=== PATIENT | male | born 1980 | race Caucasian/White ===

== ENCOUNTER 2020-04-21 18:18 | Emergency (ER) | payer OTHER, SELFPAY ==
[~2020-04-21] VITALS: Ht 175.3 cm; Wt 100.6 kg
--- NOTE | 2020-04-21 18:38 | NUR ---
Note undone in EDM - 04/21/20 at 1847 by DAVID Pt here for suicidal ideation spoke with hot line went to [facility] and was told to come here. Pt on new medication that is not working and was better controlled on other medication. Pts plan on hanging himself. 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 Pt reports he left his familys house because they were smoking meth. Pt very tearful and behaving apporpraitely. Pt changed into gown and belongings placed in psych locker. Urine collected and walked to lab. Sitter at bedside.
--- NOTE | 2020-04-21 18:47 | NUR ---
Pt here for suicidal ideation spoke with hot line went to [facility] and was told to come here. Pt on new medication that is not working and was better controlled on other medication. Pts plan on hanging himself. 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 Pt reports he left his familys house because they were smoking meth. Pt very tearful and behaving apporpraitely. Pt changed into gown and belongings in bag in room with patient. Urine collected and at bedside, pt waiting to be seen by .
--- NOTE | 2020-04-21 18:57 | NUR ---
Report received from KAYA Grimaldo. This RN to assume care.
[2020-04-21 19:26] LABS: BASOPHILS # (AUTO) 0.02 x10^3/uL (0-0.1); BASOPHILS % (AUTO) 0 % (0-1); EOSINOPHILS # (AUTO) 0.13 x10^3/uL (0-0.4); EOSINOPHILS % (AUTO) 2 % (1-7); LYMPHOCYTES # (AUTO) 2.08 x10^3/uL (1-3.4); LYMPHOCYTES % (AUTO) 27 % (22-44); MD NO; MEAN CORPUSCULAR HEMOGLOBIN 30.4 pg (27.5-34.5); MEAN CORPUSCULAR HGB CONC 34.6 g/dL (33.2-36.2); MEAN PLATELET VOLUME 7.1 fL (7.4-10.4); MONOCYTES # (AUTO) 0.51 x10^3/uL (0.2-0.8); MONOCYTES % (AUTO) 7 % (2-9); NEUTROPHILS % (AUTO) 65 % (42-75); PLATELET COUNT 303 x10^3/uL (130-400); RED BLOOD COUNT 5.59 x10^6/uL (4.38-5.82); RED CELL DISTRIBUTION WIDTH 13.6 % (9.4-14.8)
[2020-04-21 19:39] LABS: ALANINE AMINOTRANSFERASE 42 U/L (12-78); ALBUMIN 3.7 g/dL (3.4-5.0); ANION GAP 4 mmol/L (5-15); CALCIUM 8.6 mg/dL (8.5-10.1); CHLORIDE 105 mmol/L (98-107); CREATININE 1.25 mg/dL (0.7-1.3); SALICYLATE LEVEL 2.1 mg/dL (2.8-20.0)
[2020-04-21 19:41] LABS: ALKALINE PHOSPHATASE 71 U/L (45-117); BILIRUBIN,TOTAL 0.3 mg/dL (0.2-1.0); TOTAL PROTEIN 7.6 g/dL (6.4-8.2)
[2020-04-21 20:28] LABS: AMPHETAMINE SCREEN, URINE Negative (Negative); BARBITURATE SCREEN, URINE Negative (Negative); BENZODIAZEPINE SCREEN, URINE Negative (Negative); CANNABINOID SCREEN, URINE Negative (Negative); COCAINE SCREEN, URINE Negative (Negative); METHADONE SCREEN, URINE Negative (Negative); OPIATE SCREEN, URINE Negative (Negative)
[2020-04-21] MEDS ORDERED: LORazepam 1MG TABLET ONE ×2 (20:52→22:34)
--- NOTE | 2020-04-21 20:58 | NUR ---
Patient feeling anxious and appears upset. Provided sprite and water. Admin meds per mar.
[2020-04-21] MEDS ORDERED: LORazepam 1MG TABLET PO ONE ×2 (21:00→22:30)
--- NOTE | 2020-04-21 22:30 | NUR ---
Patient remains anxious. Admin additional Ativan per jan.
--- NOTE | 2020-04-21 23:35 | NUR ---
TP RN: EMILY LAM IN [facility], WILL NOT ACCEPT PT DUE TO INSURANCE.
--- NOTE | 2020-04-21 23:55 | NUR ---
Patient sleeping in [place]. Respirations even and unlabored. Room secured; sitter outside. Belongings locked in cabinet.
--- NOTE | 2020-04-22 00:19 | NUR ---
TASK RN: PT RESTING CALMLY IN [facility]. NAD NOTED. SITTER PRESENT. ROOM SECURE. NO PERSONAL BELONGINGS NOTED IN ROOM.
--- NOTE | 2020-04-22 00:29 | NUR ---
TP RN: PACKET FAXED TO [facility].
--- NOTE | 2020-04-22 01:20 | NUR ---
Patient sleeping in [place]. Respirations even and unlabored. Room secured; sitter outside. Belongings locked in cabinet.
--- NOTE | 2020-04-22 02:09 | NUR ---
Pt report from Rina ramirez. This rn to assume care of pt. Moved to room 01. Roller doors in place. Sitter in hallway. Hospital bed in place.
--- NOTE | 2020-04-22 02:57 | NUR ---
Pt bedside report to Gabbi KIRKPATRICK.
--- NOTE | 2020-04-22 03:00 | NUR ---
report from KAYA lomeli
--- NOTE | 2020-04-22 04:00 | NUR ---
pt resting on hospital bed, eyes closed, resp even and unblabored. sitter at doorway for frequent checks.
--- NOTE | 2020-04-22 06:01 | NUR ---
pt resting on hospital bed, eyes closed, resp even and unlabored. sitter at doorway for frequent checks.
--- NOTE | 2020-04-22 06:59 | NUR ---
REPORT RECEIVED FROM RAYMUNDO KIRKPATRICK.
[2020-04-22 07:13] VITALS: BP 99/66
--- NOTE | 2020-04-22 07:23 | NUR ---
PT BECOMING AGITATED AND PARANOID. PT STATES HE WAS SWITCHED FROM [employer]OFT KLONOPIN AND BUSPAR TO ESCITALOPRAM WHICH HAS NOT BEEN WORKING FOR HIM X2 MONTHS. PT IS REQUESTING KLONOPIN, REPORTS THAT ATIVAN MAKES HIM SLEEPY AND PARANOID WHEN HE WAKES UP. UPDATED. PT MEDICATED PER EMAR. BREAKAST TRAY ORDERED. PT VSS, BRIGETTEN. PT REPORTS STILL SI.
--- NOTE | 2020-04-22 08:00 | NUR ---
BREAKFAST TRAY DELIVERED
--- NOTE | 2020-04-22 08:30 | NUR ---
PT SLEEPING ON HOSPITAL BED W/ SITTER OUTSIDE ROOM AND GARAGE DOORS DOWN FOR SAFETY. CHEST RISE AND FALL OBSERVED.
--- NOTE | 2020-04-22 09:48 | NUR ---
PT AMBULATED TO THE BR W/ A STEADY GAIT. RETURNED TO ROOM. PROVIDED WATER. SITTER OUTSIDE ROOM, GARAGE DOORS DOWN FOR SAFETY.
--- NOTE | 2020-04-22 10:27 | NUR ---
REPORT GIVEN TO RONNIE KIRKPATRICK FROM [facility]. HE REPORTS THEY CAN TAKE PT AT 1200PM TODAY. THROUGHPUT UPDATED.
--- NOTE | 2020-04-22 10:45 | NUR ---
THROUGHPUT: RECEIVED A CALL FROM RONNIE AT [facility], ACCEPTING MD IS DR. MEEHAN. PACKET MADE, COBRA SIGNED BY DR. SHAH. CALLED [facility], ADULT PSYCHIATRIST TIME AT 1200.
--- NOTE | 2020-04-22 11:42 | NUR ---
PT TRANSFERED BY [facility] TO [facility].
== END 2020-04-22 11:43 ==
LOC: ED 21:33
DX: F32.9 Major depressive disorder, single episode, unspecified (principal); F17.200 Nicotine dependence, unspecified, uncomplicated
CPT/HCPCS: 36415; 80053; 80307; 85025; 99285

== ENCOUNTER 2020-05-14 11:03 | Inpatient (IN) | payer MEDICAID ==
[~2020-05-14] VITALS: Ht 172.7 cm; Wt 108.0 kg
[2020-05-14] MEDS ORDERED: BISACODYL 10 MG SUPP PR PRN (11:30)
[2020-05-14] MEDS ORDERED: ONDANSETRON ODT 4 MG PO PRN (11:30)
[2020-05-14] MEDS ORDERED: POLYETHYLENE GLYCOL 17 GM PACKET PO PRN (11:30)
[2020-05-14] MEDS ORDERED: DOCUSATE 100 MG CAPSULE PO PRN (11:30)
[2020-05-14] MEDS ORDERED: ESCI20TA10 PO (12:30)
[2020-05-14] MEDS ORDERED: HALO5AMP2 PO (13:25)
[2020-05-14 13:29] VITALS: BP 118/71
[2020-05-14] MEDS ORDERED: ACET650S21 PO (14:16)
[2020-05-14] MEDS ORDERED: FAMO20TA7 PO (14:25)
[2020-05-14] MEDS ORDERED: LORA-974 PO (14:25)
[2020-05-14] MEDS ORDERED: CLON1TAB11 PO (14:25)
[2020-05-14] MEDS ORDERED: SERT100T32 PO (14:25)
[2020-05-14] MEDS ORDERED: LORA-446 PO (14:25)
[2020-05-14] MEDS ORDERED: ZIPRASIDONE 20MG CAPSULE ONE (14:43)
[2020-05-14] MEDS: LORazepam 1MG TABLET PO PRN ×2 (14:50→20:43)
[2020-05-14] MEDS: ZIPRASIDONE 20MG CAPSULE PO PRN ×2 (14:50→20:44)
[2020-05-14 15:17] LABS: MICROSCOPIC NOT IND
[2020-05-14 15:31] LABS: CHOL/HDL RATIO 6.6; FREE T4 (FREE THYROXINE) 1.07 ng/dL (0.76-1.46); LDL/HDL RATIO 3.7 (0.5-3.0)
[2020-05-14 20:45] VITALS: BP 104/70
[2020-05-15] MEDS: LORazepam 1MG TABLET PO PRN ×3 (03:19→18:41)
[2020-05-15] MEDS: ZIPRASIDONE 20MG CAPSULE PO PRN ×4 (03:20→20:04)
[2020-05-15 06:30] LABS: BASOPHILS # (AUTO) 0.02 x10^3/uL (0-0.1); BASOPHILS % (AUTO) 0 % (0-1); EOSINOPHILS # (AUTO) 0.16 x10^3/uL (0-0.4); EOSINOPHILS % (AUTO) 2 % (1-7); LYMPHOCYTES # (AUTO) 2.12 x10^3/uL (1-3.4); LYMPHOCYTES % (AUTO) 26 % (22-44); MD NO; MEAN CORPUSCULAR HGB CONC 33.4 g/dL (33.2-36.2); MEAN CORPUSCULAR VOLUME 89.8 fL (81-97); MEAN PLATELET VOLUME 6.8 fL (7.4-10.4); MONOCYTES # (AUTO) 0.54 x10^3/uL (0.2-0.8); MONOCYTES % (AUTO) 7 % (2-9); NEUTROPHILS # (AUTO) 5.42 x10^3/uL (1.8-6.8); NEUTROPHILS % (AUTO) 66 % (42-75); PLATELET COUNT 329 x10^3/uL (130-400); RED CELL DISTRIBUTION WIDTH 13.6 % (9.4-14.8)
[2020-05-15 06:39] LABS: ANION GAP 5 mmol/L (5-15); CALCIUM 8.7 mg/dL (8.5-10.1); CHLORIDE 110 mmol/L (98-107); CREATININE 0.91 mg/dL (0.7-1.3)
[2020-05-15 07:53] VITALS: BP 145/92
[2020-05-15] MEDS ORDERED: ESCITALOPRAM 10MG TABLET PO SCH (09:00)
[2020-05-15] MEDS: ACETAMINOPHEN 325 MG TABLET PO PRN (12:49)
[2020-05-15] MEDS ORDERED: DIVALPROEX 500 MG TAB.ER.24H ONE (13:57)
[2020-05-15] MEDS ORDERED: DIVALPROEX 500 MG TABLET.DR ONE (13:58)
[2020-05-15] MEDS ORDERED: DIVALPROEX 500 MG TAB.ER.24H PO ONE (14:00)
[2020-05-15] MEDS ORDERED: DIVALPROEX 500 MG TABLET.DR PO ONE (14:00)
[2020-05-15 19:48] VITALS: BP 130/82
[2020-05-15] MEDS: DIVALPROEX 500 MG TABLET.DR PO SCH (20:04)
[2020-05-15] MEDS ORDERED: DOXEPIN 25 MG CAPSULE ONE (20:43)
[2020-05-15] MEDS: DOXEPIN 25 MG CAPSULE PO PRN (20:52)
[2020-05-15] MEDS ORDERED: DIVALPROEX 500 MG TAB.ER.24H PO SCH (21:00)
[2020-05-16 07:48] VITALS: BP 129/73
[2020-05-16] MEDS: DIVALPROEX 500 MG TABLET.DR PO SCH ×2 (08:43→20:48)
[2020-05-16] MEDS: ZIPRASIDONE 20MG CAPSULE PO PRN ×3 (08:44→20:48)
[2020-05-16] MEDS: ACETAMINOPHEN 325 MG TABLET PO PRN ×2 (08:44→14:41)
[2020-05-16] MEDS: LORazepam 1MG TABLET PO PRN ×2 (08:44→14:42)
[2020-05-16 19:12] VITALS: BP 119/74
[2020-05-16] MEDS: DOXEPIN 25 MG CAPSULE PO PRN (20:48)
[2020-05-17] MEDS: LORazepam 1MG TABLET PO PRN ×4 (03:20→23:19)
[2020-05-17 07:45] VITALS: BP 120/84
[2020-05-17] MEDS: DIVALPROEX 500 MG TABLET.DR PO SCH ×2 (08:30→20:29)
[2020-05-17] MEDS: ZIPRASIDONE 20MG CAPSULE PO PRN (08:30)
[2020-05-17 19:26] VITALS: BP 142/86
[2020-05-17] MEDS: ZIPRASIDONE 40MG CAPSULE PO SCH (20:29)
[2020-05-17] MEDS: DOXEPIN 25 MG CAPSULE PO PRN (20:29)
[2020-05-18] MEDS: LORazepam 1MG TABLET PO PRN ×2 (06:07→12:07)
[2020-05-18 07:49] VITALS: BP 121/75
[2020-05-18] MEDS: DIVALPROEX 500 MG TABLET.DR PO SCH ×2 (08:32→20:29)
[2020-05-18] MEDS: ZIPRASIDONE 20MG CAPSULE PO PRN (08:33)
[2020-05-18] MEDS: ACETAMINOPHEN 325 MG TABLET PO PRN (08:33)
[2020-05-18] MEDS ORDERED: ZIPR40CA2 PO (13:38)
[2020-05-18] MEDS ORDERED: DOXE25CA PO (13:38)
[2020-05-18] MEDS ORDERED: DIVA-61 PO (13:38)
[2020-05-18 19:53] VITALS: BP 119/80
[2020-05-18] MEDS: DOXEPIN 25 MG CAPSULE PO PRN (20:29)
[2020-05-18] MEDS: ZIPRASIDONE 40MG CAPSULE PO SCH (20:29)
[2020-05-19 07:00] VITALS: BP 121/79
[2020-05-19] MEDS: DIVALPROEX 500 MG TABLET.DR PO SCH (08:29)
[2020-05-19] MEDS: ACETAMINOPHEN 325 MG TABLET PO PRN (10:06)
== END 2020-05-19 14:15 | disposition home or self-care (01) | DRG 885 ==
LOC: 3E 13:12
PROVIDERS: ADMIT Psychiatry & Neurology Psychosomatic Medicine; ATTEND Psychiatry & Neurology Psychosomatic Medicine
DX: F31.63 Bipolar disorder, current episode mixed, severe, without psychotic features (principal); F15.20 Other stimulant dependence, uncomplicated; K50.90 Crohn's disease, unspecified, without complications; F41.9 Anxiety disorder, unspecified; F43.10 Post-traumatic stress disorder, unspecified; F17.200 Nicotine dependence, unspecified, uncomplicated; G89.29 Other chronic pain; M54.2 Cervicalgia; I10 Essential (primary) hypertension; Z79.899 Other long term (current) drug therapy; Z91.030 Bee allergy status; Z59.0 Homelessness
CPT/HCPCS: 36415; 72040; 80048; 80061; 81003; 82150; 82607; 83690; 84439; 84443; 85025; 93005

== ENCOUNTER 2020-05-23 04:55 | Emergency (ER) | payer MEDICAID ==
[~2020-05-23] VITALS: Ht 175.3 cm; Wt 108.0 kg
[~2020-05-23 04:55] MED LIST: ACET650S21 PO; CLON1TAB11 PO; DIVA-61 PO; DOXE25CA PO; ESCI20TA10 PO; FAMO20TA7 PO; HALO5AMP2 PO; LORA-446 PO; LORA-974 PO; SERT100T32 PO; ZIPR40CA2 PO
--- NOTE | 2020-05-23 05:08 | NUR ---
Pt presents with c/o feeling psychotic. Pt states he was at a detention and went to [facility] to try to see a psychiatrist for meds but was unable to, pt states he hasn't been on his psych meds and that he doesn't feel normal. Pt appears tearful, anxious, stuttering, and laughing.
--- NOTE | 2020-05-23 05:10 | NUR ---
Pt changed into gown and belongings collected and store in locked cabinets. safety of room ensured, garage doors put down, sitter in view in hallway to observe, call begum within reach, lights dimmed to promote rest, medicated per MAR
[2020-05-23] MEDS ORDERED: LORazepam 1MG TABLET ONE (05:19)
[2020-05-23] MEDS ORDERED: LORazepam 1MG TABLET PO ONE (05:30)
[2020-05-23 05:56] LABS: AMPHETAMINE SCREEN, URINE Negative (Negative); BARBITURATE SCREEN, URINE Negative (Negative); BENZODIAZEPINE SCREEN, URINE Positive (Negative); CANNABINOID SCREEN, URINE Negative (Negative); COCAINE SCREEN, URINE Negative (Negative); METHADONE SCREEN, URINE Negative (Negative); OPIATE SCREEN, URINE Negative (Negative)
[2020-05-23 06:01] LABS: BASOPHILS # (AUTO) 0.02 x10^3/uL (0-0.1); BASOPHILS % (AUTO) 0 % (0-1); EOSINOPHILS # (AUTO) 0.12 x10^3/uL (0-0.4); EOSINOPHILS % (AUTO) 2 % (1-7); LYMPHOCYTES # (AUTO) 2.01 x10^3/uL (1-3.4); LYMPHOCYTES % (AUTO) 26 % (22-44); MD NO; MEAN CORPUSCULAR HGB CONC 33.7 g/dL (33.2-36.2); MEAN PLATELET VOLUME 6.9 fL (7.4-10.4); MONOCYTES # (AUTO) 0.64 x10^3/uL (0.2-0.8); MONOCYTES % (AUTO) 8 % (2-9); NEUTROPHILS # (AUTO) 4.97 x10^3/uL (1.8-6.8); NEUTROPHILS % (AUTO) 64 % (42-75); PLATELET COUNT 303 x10^3/uL (130-400); RED CELL DISTRIBUTION WIDTH 13.8 % (9.4-14.8)
[2020-05-23 06:16] LABS: CHLORIDE 108 mmol/L (98-107)
[2020-05-23 06:23] LABS: ALBUMIN 3.6 g/dL (3.4-5.0); ANION GAP 8 mmol/L (5-15); CALCIUM 8.6 mg/dL (8.5-10.1); CREATININE 1.05 mg/dL (0.7-1.3); SALICYLATE LEVEL 2.9 mg/dL (2.8-20.0)
--- NOTE | 2020-05-23 06:41 | NUR ---
Pt now resting in [facility] with eyes closed, NAD noted, sitter in view from [place], call begum within reach, will continue to monitor
--- NOTE | 2020-05-23 07:02 | NUR ---
RECEIVED REPORT FROM BOBBI NAJERA RN. PT RESTING ON [facility]. SITTER REMAINS AT BEDSIDE. ROOM REMAINS SECURE.
[2020-05-23 07:55] VITALS: BP 120/77
--- NOTE | 2020-05-23 07:56 | NUR ---
PT RESTING ON [facility]. [place]. VSS. SITTER REMAINS AT BEDSIDE. ROOM REMAINS SECURE. PT PROVIDED W/ SI BREAKFAST TRAY. PT STATES "IF I CAN STAY HERE FOR 3 DAYS AND THEN I'LL BE GOOD". PT REQUESTING HE NOT GO TO [facility]. PT PROVIDED W/ WARM BLANKET.
--- NOTE | 2020-05-23 08:53 | NUR ---
PT RESTING ON [place]. SHAHRAM. SITTER REMAINS AT BEDSIDE. ROOM REMAINS SECURE.
--- NOTE | 2020-05-23 09:58 | NUR ---
PT RESTING ON [place]. SHAHRAM. SITTER REMAINS AT BEDSIDE. ROOM REMAINS SECURE.
[2020-05-23] MEDS ORDERED: ACETAMINOPHEN 325 MG TABLET ONE (10:49)
--- NOTE | 2020-05-23 10:49 | NUR ---
PT C/O TOOTHACHE. ERP DR. DELGADILLO NOTIFIED.
[2020-05-23] MEDS ORDERED: ACETAMINOPHEN 325 MG TABLET PO ONE (11:00)
--- NOTE | 2020-05-23 11:56 | NUR ---
COREY, PSYCH GLASS ENGRAVER AT BEDSIDE.
[2020-05-23] MEDS ORDERED: DIVALPROEX 500 MG TABLET.DR PO ONE (13:00)
[2020-05-23] MEDS ORDERED: DIVALPROEX 500 MG TABLET.DR ONE (13:01)
--- NOTE | 2020-05-23 13:12 | NUR ---
Patient given discharge instructions and they have confirmed that they understand the instructions. Patient ambulatory with steady gait.
== END 2020-05-23 13:14 | disposition home or self-care (01) ==
LOC: ED 05:15
DX: F29 Unspecified psychosis not due to a substance or known physiological condition (principal); R45.851 Suicidal ideations; F41.9 Anxiety disorder, unspecified; F17.210 Nicotine dependence, cigarettes, uncomplicated
CPT/HCPCS: 36415; 80048; 80307; 82040; 85025; 99284

== ENCOUNTER 2020-05-23 18:35 | Emergency (ER) | payer MEDICAID ==
[~2020-05-23] VITALS: Ht 175.3 cm; Wt 102.0 kg
--- NOTE | 2020-05-23 18:53 | NUR ---
REPORT TO THUAN KIRKPATRICK
[2020-05-23] MEDS ORDERED: LORazepam 1MG TABLET PO ONE (19:00)
[2020-05-23] MEDS ORDERED: PLEASE ENTER HEIGHT AND WEIGHT MC SCH (19:00)
[2020-05-23 19:06] VITALS: BP 129/88
[2020-05-23] MEDS ORDERED: LORazepam 1MG TABLET ONE (19:14)
[2020-05-23] MEDS ORDERED: ACETAMINOPHEN 500 MG TABLET ONE (19:14)
--- NOTE | 2020-05-23 19:19 | NUR ---
MEDICATED PER MAR. SECURED ROOM FOR SAFETY. SITTER AT DOOR FOR SAFETY WATCH.
[2020-05-23] MEDS ORDERED: ACETAMINOPHEN 500 MG TABLET PO ONE (20:30)
== END 2020-05-23 20:29 | disposition home or self-care (01) ==
LOC: ED 19:11
DX: F20.9 Schizophrenia, unspecified (principal); F41.1 Generalized anxiety disorder; R45.851 Suicidal ideations; Z72.9 Problem related to lifestyle, unspecified
CPT/HCPCS: 99284

== ENCOUNTER 2020-06-08 17:12 | Emergency (ER) | payer MEDICAID ==
[~2020-06-08] VITALS: Ht 175.3 cm; Wt 109.0 kg
--- NOTE | 2020-06-08 17:12 | NUR ---
Pt WISAM REMSA-c/o SI. Pt states "It's been getting so bad I'm actually getting excited about doint it. I'm going to get a backpack and some rope and walk away from people and just hang myself." Pt very anxious on arrival but cooperative with staff interventions and questions. Pt placed in gown, all pt belongings placed in 3 bags and secured in locker after being labeled with pt sticker. Room secured, sitter requested from propellant charge zone assembler, all safety measures observed.
--- NOTE | 2020-06-08 18:04 | NUR ---
Pt ambulatory to bathroom and back to bed with steady gait. Urine sample labeled at bedside and sent to lab. Pt requesting food. Meal tray ordered.
[2020-06-08 18:05] LABS: BASOPHILS # (AUTO) 0.02 x10^3/uL (0-0.1); BASOPHILS % (AUTO) 0 % (0-1); EOSINOPHILS % (AUTO) 3 % (1-7); LYMPHOCYTES # (AUTO) 2.15 x10^3/uL (1-3.4); LYMPHOCYTES % (AUTO) 32 % (22-44); MD NO; MEAN CORPUSCULAR HEMOGLOBIN 30.7 pg (27.5-34.5); MEAN CORPUSCULAR HGB CONC 34.3 g/dL (33.2-36.2); MEAN CORPUSCULAR VOLUME 89.6 fL (81-97); MEAN PLATELET VOLUME 7.1 fL (7.4-10.4); MONOCYTES # (AUTO) 0.54 x10^3/uL (0.2-0.8); MONOCYTES % (AUTO) 8 % (2-9); NEUTROPHILS # (AUTO) 3.87 x10^3/uL (1.8-6.8); NEUTROPHILS % (AUTO) 57 % (42-75); PLATELET COUNT 291 x10^3/uL (130-400); RED BLOOD COUNT 5.24 x10^6/uL (4.38-5.82); RED CELL DISTRIBUTION WIDTH 14.1 % (9.4-14.8)
[2020-06-08 18:14] LABS: ALANINE AMINOTRANSFERASE 43 U/L (12-78); ALBUMIN 3.5 g/dL (3.4-5.0); ANION GAP 7 mmol/L (5-15); CALCIUM 9.1 mg/dL (8.5-10.1); CHLORIDE 109 mmol/L (98-107); CREATININE 0.98 mg/dL (0.7-1.3); SALICYLATE LEVEL 2.8 mg/dL (2.8-20.0)
[2020-06-08 18:17] LABS: ALKALINE PHOSPHATASE 58 U/L (45-117); BILIRUBIN,TOTAL 0.2 mg/dL (0.2-1.0); TOTAL PROTEIN 7.2 g/dL (6.4-8.2)
[2020-06-08 18:49] LABS: AMPHETAMINE SCREEN, URINE Negative (Negative); BARBITURATE SCREEN, URINE Negative (Negative); BENZODIAZEPINE SCREEN, URINE Negative (Negative); CANNABINOID SCREEN, URINE Negative (Negative); COCAINE SCREEN, URINE Negative (Negative); METHADONE SCREEN, URINE Negative (Negative); OPIATE SCREEN, URINE Negative (Negative)
--- NOTE | 2020-06-08 18:57 | NUR ---
Report to Tex KIRKPATRICK.
--- NOTE | 2020-06-08 19:06 | NUR ---
Pt given meal and no other immediate needs. Moved to Room 1 and bedside report to Anna ramirez.
--- NOTE | 2020-06-08 19:09 | NUR ---
BEDSIDE REPORT RECEIVED FROM KAYA SANCHEZ. PT AMBYLATORY TO ROOM. PT ANXIOUS, PACING IN ROOM. STATES "THIS IS THE 4TH TIME I'VE BEEN HERE, I CAN'T DO THIS ANYMORE." PT EASILY DISTRACTED TO WATCH TV, LAYING IN BED.
--- NOTE | 2020-06-08 20:08 | NUR ---
TELEPSYCH IN ROOM, AWAITING EVALUATION. ROSETTA, PARTY PLAN SALES AGENT TO BEDSIDE TO TALK WITH PT ABOUT D/C HOUSING.
--- NOTE | 2020-06-08 20:09 | NUR ---
PT PROVIDED WITH WATER AND JUICE, LIGHTS OFF TO PROMOTE REST. PT STATES HE'S FEELING MANIC, PT HAS REMAINED IN BED SINCE MOVING TO ROOM 1.
--- NOTE | 2020-06-08 21:35 | NUR ---
PT SLEEPING, RESPIRATIONS EVEN AND UNLABORED, REMAINS IN VIEW OF THE SITTER.
--- NOTE | 2020-06-09 00:53 | NUR ---
THROUGHPUT: Faxed packet to [facility], [facility], and [place]. RB not accepting at this time; no beds available.
--- NOTE | 2020-06-09 00:56 | NUR ---
PT PROVIDED WITH MEAL FROM [employer]. PT PLACED ON HOSPITAL BED, REMAINS IN VIEW OF THE SITTER.
--- NOTE | 2020-06-09 02:33 | NUR ---
TP rn: Toni from [facility] called and stated "we are starting to look things over on our end." Potential for tx.
--- NOTE | 2020-06-09 03:45 | NUR ---
PT REMAINS SLEEPING AND IN VIEW OF THE SITTER, RESPIRATIONS EVEN AND UNLABORED.
--- NOTE | 2020-06-09 04:47 | NUR ---
MT: [facility] CALLED AND ACCEPTED PT FOR 8AM. ACCEPTING DOCTOR IS DR. ESCOBAR.
--- NOTE | 2020-06-09 05:50 | NUR ---
LATE ENTRY FOR 439: PT REQUESTED TO WALK HALLWAYS, THIS RN WALKED WITH PT. PT UPDATED ON POC INCLUDING PLAN TO TRANSFER TO [place]. PT BECAME VERY UPSET BY THIS NEWS, "I'M NOT GOING TO [place], THEY HAVE NOTHING IN CONTROL, GIVE ME MY STUFF BACK, I DON'T CARE, I'M NOT GOING THERE." PT EDUCATED THAT HIS CHART WAS SENT TO ALL [facility] FACILITIES AND THAT [place] ACCEPTED, OTHERS INCLUDING [facility] DID NOT HAVE ROOM. PT STILL VISIBLY UPSET BY THIS, MAKING SAME STATEMENTS PREVIOUSLY AND "I'M JUST GOING TO PRETEND, DO MY 72 HOURS AND GET OUT, I WASN'T PLANNING ON DOING IT (PLAN FOR SUICIDE) IN THE NEXT COUPLE DAYS ANYWAY." PT EDUCATED THAT HE NEEDS TO BE CALM ENOUGH TO STAY IN HIS ROOM, PT TOLD THIS RN WHAT HIS DAILY MEDICATION IS, MEDICATED TO MAR BASED ON THIS INFORMATION.
--- NOTE | 2020-06-09 06:50 | NUR ---
Took report from Anna Matt RN, assume care at this time.
--- NOTE | 2020-06-09 07:16 | NUR ---
Room is safe and secure with sitter outside room. Pt in hospital bed sleeping with even RR, calm. ED diet tray ordered.
[2020-06-09 08:38] VITALS: BP 126/79
== END 2020-06-09 08:40 | disposition home or self-care (01) ==
LOC: ED 22:41
DX: R45.851 Suicidal ideations (principal); F41.9 Anxiety disorder, unspecified; F20.9 Schizophrenia, unspecified; F17.210 Nicotine dependence, cigarettes, uncomplicated
CPT/HCPCS: 36415; 80053; 80307; 85025; 99284

== ENCOUNTER 2020-08-10 16:20 | Emergency (ER) | payer MEDICAID ==
[~2020-08-10] VITALS: Ht 175.3 cm; Wt 113.0 kg
[2020-08-10] MEDS ORDERED: SODIUM CHLORIDE FLUSH 10ML SYR IVF ONE (17:00)
[2020-08-10 17:08] LABS: BASOPHILS % (AUTO) 1 % (0-1); EOSINOPHILS % (AUTO) 3 % (1-7); LYMPHOCYTES % (AUTO) 30 % (22-44); MEAN CORPUSCULAR HEMOGLOBIN 30.5 pg (27.5-34.5); MEAN CORPUSCULAR HGB CONC 34.6 g/dL (33.2-36.2); MEAN PLATELET VOLUME 6.8 fL (7.4-10.4); MONOCYTES % (AUTO) 6 % (2-9); NEUTROPHILS % (AUTO) 60 % (42-75); PLATELET COUNT 296 x10^3/uL (130-400); RED BLOOD COUNT 5.29 x10^6/uL (4.38-5.82); RED CELL DISTRIBUTION WIDTH 13.3 % (9.4-14.8)
[2020-08-10 17:11] LABS: MD NO
[2020-08-10 17:19] LABS: ALBUMIN 3.6 g/dL (3.4-5.0); ANION GAP 6 mmol/L (5-15); CALCIUM 9.1 mg/dL (8.5-10.1); CHLORIDE 105 mmol/L (98-107)
[2020-08-10 17:22] LABS: ALANINE AMINOTRANSFERASE 41 U/L (12-78); ALKALINE PHOSPHATASE 76 U/L (45-117); BILIRUBIN,TOTAL 0.4 mg/dL (0.2-1.0); CREATININE 1.21 mg/dL (0.7-1.3); TOTAL PROTEIN 7.5 g/dL (6.4-8.2)
--- NOTE | 2020-08-10 18:00 | NUR ---
[employer] ARCHITECT: PT AMBULATORY TO ROOM WITH STEADY GAIT FROM LOBBY WITH PLANT SUPERVISOR
[2020-08-10] MEDS ORDERED: ONDANSETRON 2MG/ML, 2ML ONE (18:30)
[2020-08-10] MEDS ORDERED: ONDANSETRON 2MG/ML, 2ML IVPush ONE (18:30)
[2020-08-10] MEDS ORDERED: MORPHINE SULFATE 4 MG/ML, 1ML ONE (18:30)
[2020-08-10] MEDS ORDERED: MORPHINE SULFATE 4 MG/ML, 1ML IVPush PRN (18:30)
--- NOTE | 2020-08-10 18:36 | NUR ---
TO CT VIA [facility]
[2020-08-10] MEDS ORDERED: OMNIPAQUE 350 MG/ML, 100ML BOTTLE ONE (18:52)
--- NOTE | 2020-08-10 18:54 | NUR ---
REPORT FROM KAYA ALVARENGA
[2020-08-10] MEDS ORDERED: HYDROmorphone 2 MG/ML, 1ML IVPush PRN (19:00)
[2020-08-10] MEDS ORDERED: HYDROmorphone 1 MG/ML, 1ML INJ ONE (19:07)
[2020-08-10 20:04] LABS: MICROSCOPIC NOT IND
[2020-08-10 20:40] VITALS: BP 121/76
== END 2020-08-10 20:43 | disposition home or self-care (01) ==
LOC: ED 20:25
DX: K62.5 Hemorrhage of anus and rectum (principal); F25.9 Schizoaffective disorder, unspecified
CPT/HCPCS: 36415; 74177; 80053; 81003; 85025; 96374; 96375; 99285; J1170; J2270; J2405; Q9967

== ENCOUNTER 2020-10-29 09:47 | Emergency (ER) | payer MEDICAID ==
[~2020-10-29] VITALS: Ht 175.3 cm; Wt 114.5 kg
--- NOTE | 2020-10-29 10:52 | NUR ---
pt c/o swelling to L jaw and face, nausea, and eye irritation for 3d. swelling noted, poor tooth hygeine, can't remember last dental visit.
[2020-10-29 11:12] LABS: BASOPHILS % (AUTO) 0 % (0-1); EOSINOPHILS % (AUTO) 2 % (1-7); LYMPHOCYTES % (AUTO) 32 % (22-44); MEAN CORPUSCULAR HEMOGLOBIN 30.8 pg (27.5-34.5); MEAN PLATELET VOLUME 6.7 fL (7.4-10.4); MONOCYTES % (AUTO) 9 % (2-9); NEUTROPHILS % (AUTO) 57 % (42-75); PLATELET COUNT 310 x10^3/uL (130-400); RED CELL DISTRIBUTION WIDTH 14.2 % (9.4-14.8)
[2020-10-29 11:18] LABS: MD NO
[2020-10-29 11:19] LABS: ALBUMIN 3.9 g/dL (3.4-5.0); ANION GAP 4 mmol/L (5-15); CALCIUM 8.7 mg/dL (8.5-10.1); CHLORIDE 110 mmol/L (98-107); CREATININE 0.85 mg/dL (0.7-1.3)
[2020-10-29 11:59] VITALS: BP 121/71
--- NOTE | 2020-10-29 12:00 | NUR ---
pt resting in bed. vss
--- NOTE | 2020-10-29 13:08 | NUR ---
BREAK RN: PATIENT SITTING IN RRULE, ASKING FOR PAIN MEDICATION, ERMD AWARE. ROYA OMALLEY, CALL LIGHT WITHIN REACH.
[2020-10-29] MEDS ORDERED: KETOROLAC 30 MG/1 ML ONE (13:16)
[2020-10-29] MEDS ORDERED: KETOROLAC 30 MG/1 ML IM ONE (13:30)
== END 2020-10-29 14:01 | disposition home or self-care (01) ==
LOC: ED 10:42
DX: M26.601 Right temporomandibular joint disorder, unspecified (principal); L03.221 Cellulitis of neck
CPT/HCPCS: 36415; 70480; 80048; 82040; 85025; 96372; 99284; J1885

== ENCOUNTER 2020-11-02 08:51 | Emergency (ER) | payer MEDICAID ==
[~2020-11-02] VITALS: Ht 175.3 cm; Wt 113.4 kg
[2020-11-02] MEDS ORDERED: SODIUM CHLORIDE 0.9% 1,000ML IVBOLUS ONE (09:30)
--- NOTE | 2020-11-02 09:31 | NUR ---
IV START, LABS DRAWN AND LABELLED. NAD NOTED AT THIS TIME. PT WAS ANXIOUS DURING PROVIDER ASSESSMENT. CALM NOW. LIGHTS DIMMED FOR PT COMFORT.
--- NOTE | 2020-11-02 09:46 | NUR ---
PT AMBULATES WELL INDEPENDENTLY TO BATHROOM.
[2020-11-02 10:01] LABS: BASOPHILS % (AUTO) 1 % (0-1); EOSINOPHILS % (AUTO) 2 % (1-7); LYMPHOCYTES % (AUTO) 30 % (22-44); MEAN CORPUSCULAR HEMOGLOBIN 30.7 pg (27.5-34.5); MEAN PLATELET VOLUME 6.9 fL (7.4-10.4); MONOCYTES % (AUTO) 8 % (2-9); NEUTROPHILS % (AUTO) 59 % (42-75); PLATELET COUNT 306 x10^3/uL (130-400); RED BLOOD COUNT 5.21 x10^6/uL (4.38-5.82); RED CELL DISTRIBUTION WIDTH 14.2 % (9.4-14.8)
[2020-11-02 10:03] LABS: MD NO
[2020-11-02 10:05] LABS: ANION GAP 7 mmol/L (5-15); CALCIUM 9.1 mg/dL (8.5-10.1); CHLORIDE 107 mmol/L (98-107)
[2020-11-02 10:09] LABS: ALANINE AMINOTRANSFERASE 31 U/L (12-78); ALKALINE PHOSPHATASE 63 U/L (45-117); BILIRUBIN,TOTAL 0.4 mg/dL (0.2-1.0); CREATININE 1.04 mg/dL (0.7-1.3); TOTAL PROTEIN 7.7 g/dL (6.4-8.2)
--- NOTE | 2020-11-02 10:38 | NUR ---
PT RECLINED IN BED WATCHING TELEVISION, NAD NOTED AT THIS TIME. BLANKETS PROVIDED FOR PT COMFORT. VSS. IVF INFUSING PER EMAR.
--- NOTE | 2020-11-02 10:49 | NUR ---
PT TAKEN TO IMAGING AT THIS TIME.
[2020-11-02] MEDS ORDERED: OMNIPAQUE 350 MG/ML, 100ML BOTTLE ONE (11:09)
--- NOTE | 2020-11-02 11:19 | NUR ---
PT RETURNED FROM IMAGING. EDUCATED AGAIN ON PROVIDER'S ABILITY TO READ IMAGING RESULTS PRIOR TO ADDITIONAL MEDICATION. SIDE RAILS UP, CALL LIGHT IN REACH.
[2020-11-02] MEDS ORDERED: KETOROLAC 30 MG/1 ML IM ONE (11:30)
[2020-11-02] MEDS ORDERED: KETOROLAC 30 MG/1 ML ONE (11:31)
[2020-11-02] MEDS ORDERED: KETOROLAC 30 MG/1 ML IVPush ONE (12:00)
[2020-11-02] MEDS ORDERED: METHOCARBAMOL 750 MG TABLET ONE (12:25)
[2020-11-02] MEDS ORDERED: METHOCARBAMOL 750 MG TABLET PO ONE (12:30)
--- NOTE | 2020-11-02 12:33 | NUR ---
PT MEDICATED PER EMAR. C/O HUNGER, PER JOY GLORIA PT ABLE TO EAT. GIVEN PO NUTRITION AND FLUIDS.
--- NOTE | 2020-11-02 13:29 | NUR ---
PT FALLING ASLEEP IN BED, RN ASSESSES PAIN LEVEL PT RESPONDS, "WELL, IF I'M FALLING ASLEEP IN THE BED THEN I GUESS..." REPORTS DECREASE IN PAIN LEVEL. NAD NOTED AT THIS TIME. AWAITING IMAGING.
--- NOTE | 2020-11-02 14:38 | NUR ---
BREAK RN FOR PRIMARY RN GRAEME. RECEIVED REPORT. VSS. JOY GLORIA AT BEDSIDE FOR RECHECK, DISCUSSING RESULTS AND DISCHARGE POC. PT TO BE DISCHARGED, AWAITING CHART AND DC PAPERS FROM ERP. CALL LIGHT IN REACH. FALL PRECUATIONS IN PLACE. PT GETTING DRESSED, REMOVED HIS OWN MONITORS.
--- NOTE | 2020-11-02 14:54 | NUR ---
IN TO DISCHARGE PT, REMOVED OWN IV, TIP INTACT, NO BLEEDING/SWELLING AT IV SITE. PT STATES "I HAD TO GO TO THE BATHROOM SO I JUST TOOK IT OUT ON MY OWN." PT PROVIDED DISCHAGE INSTRUCTIONS, VERBALIZED UNDERSTANDING, AMBULATED TO CHECKOUT DESK WITH STEADY GAIT.
[2020-11-02 14:55] VITALS: BP 114/68
== END 2020-11-02 15:02 | disposition home or self-care (01) ==
LOC: ED 10:35
DX: L30.9 Dermatitis, unspecified (principal); M54.2 Cervicalgia; R07.89 Other chest pain
CPT/HCPCS: 36415; 70450; 70496; 70498; 80053; 85025; 93971; 96361; 96374; 99285; J1885; J7030; Q9967; 99284